=== PATIENT | male | born 1945 | race Caucasian/White ===

== ENCOUNTER 2020-09-05 11:38 | Emergency (ER) | payer MEDICARE, OTHER, SELFPAY ==
[2020-09-05 11:46] VITALS: BP 143/87; PULSE 68; RESP 15; TEMP 36.4; O2SAT 97
--- NOTE | 2020-09-05 12:09 | ED.GENADUL_ITS ---
Discharge Plan Disposition Patient Disposition: HOME Condition: Stable Discharge Details Clinical Impression: Hand laceration Primary Care Provider: Lyndsey Hernández ED Provider: Ilia Pepper Home Meds and New Rx's Prescriptions: No Action No Known Home Meds RF: 0 Discharge Instructions Instructions: Laceration (ED) Additional Instructions: Laceration repaired without difficulty. Keep the area clean and dry, change antibiotic dressing daily. Please watch for new or worsening symptoms and return to the ER for any concerns. Otherwise I recommend returning to the ER in the next 10-14 days for suture removal. Discharge Data Discharge Date/Time-TO BE ENTERED AT DEPARTURE: 09/05/20 13:23 Medical Decision Making 75-year-old gentleman, [id number], presents with left hand laceration. Neuro, vascular, tendon intact. Tetanus status up-to-date. Recommended x-ray to rule out potential foreign body and/or bony involvement, patient declines. Patient would like the laceration repaired but no additional therapy. Laceration repaired without difficulty. Patient tolerated well. Antibiotic dressing applied. Standard discharge and return precautions given. This documentation was generated using EduRiseation system, please disregard any oddities of phrase or misspellings. Medical Records Medical records reviewed: Yes I reviewed the patient's medical records. HPI General Mode of arrival: ambulatory . Date/Time Provider Initiated Documentation: 09/05/20 11:57 . Limitations to Documentation: no limitations . Information obtained by: patient . HPI Narrative: This is a 75-year-old gentleman, [id number], denies any significant past medical history, tetanus status is up-to-date, presenting for a left hand laceration that he sustained on a piece of metal plating at home just prior to arrival. Patient reports the pain is mild in nature. Denies numbness, tingling, weakness, any other injury. Has not taken any medication for his symptoms. Bleeding is controlled. Denies any obvious foreign body. Related Data Home Medications Medication Instructions Recorded Confirmed Unknown [No Known Home Meds] 09/05/20 09/05/20 Allergies Allergy/AdvReac Type Severity Reaction Status Date / Time Penicillins Allergy Mild Hives Unverified 09/05/20 11:45 bee stings Allergy Severe Swelling/Ed Uncoded 09/05/20 11:45 karthik General Stated Complaint: Laceration VASILE: 4 Review of Systems Constitutional Constitutional: Denies fever(s) Musculoskeletal Musculoskeletal: Denies deformity, Denies arthralgias, Denies numbness, Denies stiffness and Denies tingling Integumentary/Breasts Skin/Breast: Denies erythema Neurologic Neurologic: Denies numbness and Denies tingling FOR[facility]LY [facility] Social History Smoking/Tobacco Use Status: Former Tobacco Use Smoking risk assessment performed?: Yes Alcohol Intake: current Alcohol Intake frequency: 0-2 drinks per day Alcohol type: beer Drug use: Never Do you feel safe at home: Yes Do you feel safe in your relationship?: Yes Exam Const General: cooperative, healthy appearing, comfortable and no acute distress Orientation: alert and awake HENUT Head: normal to inspection, normocephalic and atraumatic Eyes General: appearance normal, both eyes and all related structures Conjunctivae: conjunctivae normal Neck Neck: normal visual inspection, trachea midline and supple Resp Effort & Inspection: normal respiratory effort and able to speak in complete sentences Cardio Rate: regular rate Rhythm: regular rhythm Skin General skin exam: no rashes or lesions noted Neuro General: patient alert, patient awake, moves all extremities and no focal motor deficits Sensory Exam: no sensory deficits noted Extrem General: full ROM and capillary refill normal Other: Left hand palmar aspect with 3 cm laceration. Bleeding controlled. No obvious foreign body. Full range of motion, 5 out of 5 strength. Neuro, vascular, tendon intact. Normal radial pulse and capillary refill. Psych Appearance: grossly normal Mental Status: mental status grossly normal Course Vital Signs Vital signs: Vital Signs Temperature 36.4 C L 09/05/20 11:46 Pulse 68 09/05/20 11:46 Respiratory Rate 15 09/05/20 11:46 Blood Pressure 143/87 H 09/05/20 11:46 Pulse Oximetry 97 09/05/20 11:46 Temperature 36.4 C L 09/05/20 11:46 Temperature Source Temporal Artery Scan 09/05/20 11:46 Pulse 68 09/05/20 11:46 Respiratory Rate 15 09/05/20 11:46 Respiratory Effort Non-Labored 09/05/20 11:52 Blood Pressure 143/87 H 09/05/20 11:46 Pulse Oximetry 97 09/05/20 11:46 Pain Level 5 09/05/20 11:46 Procedures Laceration Laceration 1: Site: upper extremity Side (If applicable): left Size (cm): 2.5 Description: linear Depth: simple, single layer Local Anesthetic: Lidocaine 1% Amount of anesthesia used (mL): 6 Pre-repair: wound explored, irrigated extensively and deep structures intact Skin layer closed with: nylon Size (cm): 4-0 Number of sutures: 6
== END 2020-09-05 13:23 | disposition home or self-care (01) ==
PROVIDERS: Emergency Provider Physician Assistant; PCP Nurse Practitioner Family
DX: S61.412A Laceration without foreign body of left hand, initial encounter (principal); W26.8XXA Contact with other sharp object(s), not elsewhere classified, initial encounter
CPT/HCPCS: 12001

== ENCOUNTER → 2021-11-18 11:21 | Outpatient (CLI) | payer MEDICARE, OTHER, SELFPAY ==
--- NOTE | 2021-11-18 10:30 | DI.RAD_ITS ---
Exam(s) XR KNEE LT 3V AP,LAT,JOSEPH EXAM: XR KNEE LT 3V AP,LAT,JOSEPH CLINICAL HISTORY: left knee pain, m25.562. TECHNIQUE: 2D digital imaging was performed. Three views. COMPARISON: No exams were available for comparison FINDINGS: BONES: No acute fracture is present. No bony destructive lesion is seen. JOINTS: Moderate narrowing of the medial femoral tibial joint space and mild periarticular spurring. Mild spurring at the patella. Question of a small joint effusion. No joint effusion is seen. SOFT TISSUE: Normal. IMPRESSION: Moderate degenerative changes. Question of a small joint effusion. DATA REPOSITORY: RADIATION DOSE DELIVERED:
== END ==
PROVIDERS: PCP Nurse Practitioner Family; Visit Provider Physician Assistant
DX: M17.12 Unilateral primary osteoarthritis, left knee (principal)
CPT/HCPCS: 73562

== ENCOUNTER → 2021-11-25 14:44 | Outpatient (BNVA) | payer MEDICARE, OTHER, SELFPAY | PROVIDERS: PCP Nurse Practitioner Family; Referring Provider Nurse Practitioner Family; Visit Provider Student in an Organized Health Care Education/Training Program | DX: M23.92 Unspecified internal derangement of left knee (principal) | CPT/HCPCS: 20610; J1040 ==

== ENCOUNTER → 2022-05-01 08:37 | Outpatient (BNVA) | payer MEDICARE, OTHER, SELFPAY | PROVIDERS: PCP Nurse Practitioner Family; Referring Provider Nurse Practitioner Family; Visit Provider Student in an Organized Health Care Education/Training Program | DX: M23.92 Unspecified internal derangement of left knee (principal) | CPT/HCPCS: 99213 ==

== ENCOUNTER 2022-05-19 00:19 | Outpatient (CLI) | payer MEDICARE, OTHER, SELFPAY ==
--- NOTE | 2022-05-19 07:15 | DI.MRI_ITS ---
Exam(s) MR LOWER JOINT LT WO EXAM: MR LOWER JOINT LT WO CLINICAL HISTORY: pain,INTERNAL DERANGEMENT LT KNEE, M23.92. TECHNIQUE: Multiplanar multisequence MRI was performed. COMPARISON: CR XR KNEE LT 3V AP,LAT,JOSEPH from 11/18/2021 FINDINGS: BONES: There is no fracture or contusion pattern. JOINTS: There is thinning of the articular cartilage in the medial femoral tibial joint with small os teophytes present. Subchondral edema is noted. There TICU cartilage is otherwise unremarkable. The re is a small joint effusion. TENDONS: Extensor mechanism: Unremarkable. Medial retinaculum: Unremarkable. Lateral retinaculum: Unremarkable. Popliteus: Unremarkable. MUSCLES: Unremarkable. MENISCI: There is decreased size of the posterior horn of the medial meniscus. There is also globula r signal seen within the body and posterior horn of the medial meniscus. The findings are suggestive of a tear of the posterior horn with chronic degenerative changes seen in the both the body and post erior horn of the medial meniscus. The lateral meniscus is unremarkable. SOFT TISSUES: There is a small popliteal cyst. LIGAMENTS: Anterior Cruciate: Unremarkable. Posterior Cruciate: Unremarkable. Medial Collateral:There is an MCL sprain. Lateral Collateral: Unremarkable. OTHER: IMPRESSION: 1. Tear of the posterior horn of the medial meniscus. Underlying degenerative changes seen in the elias dy and posterior horn of the medial meniscus. 2. MCL sprain. 3. Degenerative changes seen in the medial femoral tibial joint with cartilage loss and small osteoph ytes. 4. Small joint effusion. DATA REPOSITORY:
== END 2022-05-19 00:39 ==
LOC: DI 00:19
PROVIDERS: PCP Nurse Practitioner Family; Visit Provider Student in an Organized Health Care Education/Training Program
DX: M23.92 Unspecified internal derangement of left knee (principal); M23.222 Derangement of posterior horn of medial meniscus due to old tear or injury, left knee
CPT/HCPCS: 73721

== ENCOUNTER → 2022-05-26 14:47 | Outpatient (BNVA) | payer MEDICARE, OTHER, SELFPAY | PROVIDERS: PCP Nurse Practitioner Family; Referring Provider Nurse Practitioner Family; Visit Provider Student in an Organized Health Care Education/Training Program | DX: M17.12 Unilateral primary osteoarthritis, left knee (principal); M23.92 Unspecified internal derangement of left knee; S83.242A Other tear of medial meniscus, current injury, left knee, initial encounter; X58.XXXA Exposure to other specified factors, initial encounter | CPT/HCPCS: 99214 ==

== ENCOUNTER 2023-05-29 08:09 | Emergency (ER) | payer MEDICARE, OTHER, SELFPAY ==
[2023-05-29 08:12] VITALS: BP 166/83; PULSE 65; RESP 13; TEMP 36.6; O2SAT 99
--- NOTE | 2023-05-29 08:15 | DI.CT_ITS ---
Exam(s) CT FACIAL WO EXAM: CT FACIAL WO CLINICAL HISTORY: blunt trauma nose and L orbital. TECHNIQUE: Imaging Protocol: Axial computed tomography images with coronal and sagittal reformatted images were created and reviewed CONTRAST MATERIAL: None COMPARISON: No exams were available for comparison FINDINGS: Facial Bones: Nondisplaced bilateral nasal fractures. No additional fractures. Sinuses and Mastoids: Mild mucosal thickening of the frontal and maxillary sinuses. Opacification of several ethmoid sinuses. Globes, extraocular muscles, optic nerves and retrobulbar fat: Normal. Upper aerodigestive tract: Grossly normal. Mandible and bilateral temporomandibular joints: Normal. Soft tissues: Soft tissue swelling of the nose. IMPRESSION: Nondisplaced nasal fractures. RADIATION DOSE DELIVERED: 302.58mGy.cm Total DLP DATA REPOSITORY: All CT scans at this facility are submitted to the National Radiology Data Registry (NRDR) Dose Index Registry (DIR) with the [employer] (ACR). RADIATION OPTIMIZATION: All CT scans at this facility use at least one of these dose optimization te chniques: automated exposure control; mA and/or kV adjustment per patient size (includes targeted exa ms where dose is matched to clinical indication); or iterative reconstruction.
--- NOTE | 2023-05-29 08:17 | ED.GENADUL_ITS ---
Discharge Plan Disposition Patient Disposition: Home Condition: Stable Discharge Details Clinical Impression: Fracture of nasal bones, Face lacerations Primary Care Provider: Lyndsey Hernández ED Provider: Fermín Luna Home Meds and New Rx's Prescriptions: No Action ibuprofen 200 mg tablet 200 mg PO Q6H PRN meloxicam 15 mg tablet 15 mg PO DAILY Qty: 30 1RF Discharge Instructions Instructions: Nasal Fracture (ED), Facial Laceration (ED) Additional Instructions: You were seen in the emergency department for your facial injuries due to a log hitting you on the face. You have some nondisplaced nasal fractures, please try to avoid any further trauma and these will heal on their own, he also had some minor facial lacerations which were repaired by Steri-Strips, these are semipermanent bandages that will help the wound heal they will fall off on their own in about 1 week. Please take Tylenol and ibuprofen and apply ice to any a reas of your face with pain to minimize swelling. Ice to the point of complete numbness then let rewarm, repeat as many times as needed Please return to the ER for any changes to neurological status, changes to your vision, projectile vomiting, numbness tingling. Referrals: Lyndsey Hernández [Primary Care Provider] - Discharge Data Discharge Date/Time-TO BE ENTERED AT DEPARTURE: 05/29/23 09:33 HPI General Date/Time Provider Initiated Documentation: 05/29/23 08:17 . HPI Narrative: 77 year-old male presents to ED today by POV/ambulating with a chief complaint of injury to L face- was cutting a log and a piece of it hit his face- he was wearing protective safety glasses at the time with onset just prior to arrival. Quality described as possible nasal fracture, orbit pain with two small lacerations above and below the eye, no radiation to LOC, nausea/vomiting, vision changes, neck pain, mouth pain. Severity is described as mild. Palliating factors include nothing specific attempted yet. Provoking factors include nothing specific. Patient not anticoagulated. Related Data Home Medications Medication Instructions Recorded Confirmed ibuprofen 200 mg tablet 200 mg PO Q6H PRN 11/25/21 05/29/23 meloxicam 15 mg tablet 15 mg PO DAILY #30 tabs 05/26/22 05/29/23 Previous Rx's Medication Instructions Recorded meloxicam 15 mg tablet 15 mg PO DAILY #30 tabs 05/26/22 Allergies Allergy/AdvReac Type Severity Reaction Status Date / Time Penicillins Allergy Mild Hives Verified 05/29/23 08:29 bee stings Allergy Severe Swelling/Ed Uncoded 05/29/23 08:29 karthik General Stated Complaint: EyeProblem VASILE: 3 Review of Systems All systems reviewed & are unremarkable except as noted in HPI and below Exam Narrative Exam Narrative: GENERAL APPEARANCE: Well-nourished, non-toxic, awake and alert, atraumatic, no acute distress. SKIN: Warm, pink, dry, intact, without rashes/lesions/ulcerations. HEAD: Normocephalic, atraumatic, normal hair distribution for gender/age, two small 2cm lacerations superior and inferior to L eye, mild ecchymosis L eye, no crepitus to nasal palpation. EYES: Pupils PERRLA, EOMs intact without nystagmus, vision grossly intact, visual phillips intact, normal conjunctiva, no exudates on lids/lashes. ENT: Nares patent, no circumoral cyanosis, no facial swelling NECK: Supple, trachea midline, painless cervical ROM. LUNGS/CHEST: Non-labored respirations, normal A/P diameter, symmetrical expansion, no chest wall deformity HEART (CV/PV): No peripheral edema, no JVD. ABDOMEN: Soft, non-distended, no guarding. MSK: Normal ROM, no swelling/deformity to bilateral UEs or LEs, moving all extremities without weakness, no cyanosis, spine midline without tenderness, normal curvature. NEURO: Mental Status AAOx4 - alert to person, place, time, events No facial droop, no forehead involvement. Motor: No focal weakness - strength 5/5 in bilateral UEs and LEs, proximal and distal, symmetric. Sensory: sensation intact to light touch globally. Gait normal: patient ambulated without ataxia into ED room. PSYCH: euthymic, cooperative, pleasant, appropriate speech Course Vital Signs Vital signs: Vital Signs Temperature 36.6 C 05/29/23 08:12 Pulse 65 05/29/23 08:12 Respiratory Rate 13 05/29/23 08:12 Blood Pressure 166/83 H 05/29/23 08:12 Pulse Oximetry 99 05/29/23 08:12 Temperature 36.6 C 05/29/23 08:12 Temperature Source Skin 05/29/23 08:12 Pulse 65 05/29/23 08:12 Respiratory Rate 13 05/29/23 08:12 Blood Pressure 166/83 H 05/29/23 08:12 Blood Pressure Position Sitting 05/29/23 08:12 Pulse Oximetry 99 05/29/23 08:12 Oxygen Delivery Method Room Air 05/29/23 08:12 Oxygen Flow Rate 0 05/29/23 08:12 Pain Level 4 05/29/23 08:12 Procedures Laceration Laceration 1: Site: face Side (If applicable): left Size (cm): 2 Description: linear Depth: simple, single layer Pre-repair: irrigated extensively and deep structures intact Skin layer closed with: other (steri-strips) Medical Decision Making This dictation utilizes [id number] dictation software and may contain une dited grammatical errors. 77 y/o M presents to ED today with a chief complaint of blunt impact of a log to L face- feels his nose may be broken and has two small lacerations above and below his L eye with mild ecchymosis. Patient denies LOC, visual changes, jaw pain, neck pain, nausea/vomiting. Patients' medical history: noncontributory. Family and social history: noncontributory. Pertinent exam findings / vital signs include 2x 2cm lacerations above and below L eye- mild ecchymosis, no nasal crepitus, neuro intact. Differential / pathologies of concern include laceration, retrobulbar hematoma, nasal fracture, unlikely concussion. Diagnostic studies of: -CT Facial Bones wo Contrast - nondisplaced nasal fractures. Interventions of: -steri-strip repair of 2 minor lacerations to L orbit. ED Course/Assessment/Plan: 77-year-old male had a minor trauma with a log striking his left face, he has mild bruising under the left eye with 2 small lacerations that are very superficial and curvilinear above and below the orbit, he has no crepitus to nasal palpation but feels his nose may be broken, CT facial bones shows nondisplaced nasal fractures requiring no intervention, it was given counseling on options for laceration repair and opted for Steri-Strip repair which I think is reasonable given the minor superficial nature of these lacerations, counseled on icing the area, avoiding further trauma to the nose and return criteria for any visual changes, severe increasing eye pain, alteration from baseline. Findings not consistent with concussion/ICH, retrobulbar hematoma, vision loss. Disposition of Fracture of Nasal Bones, Face Lacerations. Patient verbalized understanding of the plan and return to ED criteria and engaged in shared decision making. Medical Records Medical records reviewed: Yes I reviewed the patient's medical records. Imaging Data Radiologic Study: Attestation: I personally reviewed and interpreted this imaging study as follows: Imaging: CT Scan Radiologist's impression: EXAM: CT FACIAL WO CLINICAL HISTORY: blunt trauma nose and L orbital. TECHNIQUE: Imaging Protocol: Axial computed tomography images with coronal and sagittal reformatted images were created and reviewed CONTRAST MATERIAL: None COMPARISON: No exams were available for comparison FINDINGS: Facial Bones: Nondisplaced bilateral nasal fractures. No additional fractures. Sinuses and Mastoids: Mild mucosal thickening of the frontal and maxillary sinuses. Opacification of several ethmoid sinuses. Globes, extraocular muscles, optic nerves and retrobulbar fat: Normal. Upper aerodigestive tract: Grossly normal. Mandible and bilateral temporomandibular joints: Normal. Soft tissues: Soft tissue swelling of the nose. IMPRESSION: Nondisplaced nasal fractures. Quality:SDOH Health Related Social Needs: No Data to Display PFSH All Active Problems (Updated 05/29/23 @ 09:28 by JOSEPHINE Montiel) Face lacerations (Acute) Fracture of nasal bones (Acute) Tear of medial meniscus of left knee (Acute) Arthritis of left knee (Acute) Hand laceration (Acute) Social History Smoking/Tobacco Use Status: Former Tobacco Use Smoking risk assessment performed?: Yes Alcohol Intake: current Alcohol Intake frequency: 0-2 drinks per day Alcohol type: beer Drug use: Never Substance use type: does not use Do you feel safe at home: Yes Do you feel safe in your relationship?: Yes
[2023-05-29 08:22] VITALS: BP 166/83; PULSE 65; RESP 13; TEMP 36.6; O2SAT 99
[2023-05-29] MEDS: Ibuprofen 400 MG TAB PO (08:29)
== END 2023-05-29 09:33 | disposition home or self-care (01) ==
PROVIDERS: Emergency Provider Physician Assistant; PCP Nurse Practitioner Family
DX: S01.81XA Laceration without foreign body of other part of head, initial encounter (principal); S02.2XXA Fracture of nasal bones, initial encounter for closed fracture; W22.8XXA Striking against or struck by other objects, initial encounter
CPT/HCPCS: 99284; 70486; 99283

== ENCOUNTER 2024-11-14 09:11 | Outpatient (CLI) | payer MEDICARE, OTHER, SELFPAY ==
--- NOTE | 2024-11-14 09:00 | DI.RAD_ITS ---
Exam(s) XR KNEE LT 3V AP,LAT,JOSEPH EXAM: XR KNEE LT 3V AP,LAT,JOSEPH CLINICAL HISTORY: left knee pain, M25.562. TECHNIQUE: 2D digital imaging was performed of the left knee. Three images were obtained. AP, lateral and PA tunnel views were obtained. COMPARISON: CR XR KNEE LT 3V AP,LAT,JOSEPH from 11/18/2021 FINDINGS: BONES: No acute fracture is present. No bony destructive lesion is seen. JOINTS: There is marked narrowing in the medial femoral tibial joint. There osteophytes seen in the medial femoral tibial and patellofemoral joints. There is a suprapatellar joint effusion present. No loose body. SOFT TISSUE: Mild vascular calcification is seen. There is focal swelling in the anterior soft tissues inferior to the patella. This is best appreciated on the lateral view. IMPRESSION: 1. There is no acute fracture or dislocation. 2. Moderate degenerative changes of the left knee. 3. Small joint effusion. 4. Focal swelling in the anterior soft tissues inferior to the patella. No soft tissue calcification is present. Please correlate with the patient's physical exam. Follow-up as clinically appropriate. DATA REPOSITORY: RADIATION DOSE DELIVERED:
--- NOTE | 2024-11-14 09:00 | DI.US_ITS ---
Exam(s) US LOWER EXTREMITY VENOUS LT EXAM: US LOWER EXTREMITY VENOUS LT CLINICAL HISTORY: Leg swelling, left, OTHER SOFT TISSUE DISORDERS, M79.89 TECHNIQUE: Left lower extremity venous ultrasound performed using grayscale, color-flow, and spectral Doppler analysis. COMPARISON: No exams were available for comparison FINDINGS: The left common femoral, femoral and popliteal veins demonstrate normal compressibility, augmentation, and color Doppler. The posterior tibial veins are patent. The saphenofemoral junction is unremarkable. There is no evidence of a Wilkes cyst. There is a 2.8 x 1.2 x 2.5 cm Wilkes cyst in the popliteal fossa. This cyst communicates with collection in the proximal left calf measuring 5.1 x 0.8 x 2.8 cm. This may represent a ruptured Wilkes cyst. IMPRESSION: 1. No evidence of a left lower extremity DVT. 2. Findings suspicious for ruptured Wilkes cyst. DATA REPOSITORY:
== END 2024-11-14 09:31 ==
LOC: DI 09:12
PROVIDERS: PCP Nurse Practitioner Family; Visit Provider Physician Assistant
DX: M17.12 Unilateral primary osteoarthritis, left knee (principal)
CPT/HCPCS: 73562; 93971